=== PATIENT | male | born 1995 | race Hispanic/Latino ===

== ENCOUNTER 2021-10-21 15:26 | Emergency (ER) | payer OTHER ==
[~2021-10-21] VITALS: Ht 170.2 cm; Wt 66.2 kg
[2021-10-21 15:27] VITALS: BP 110/69
[2021-10-21] MEDS ORDERED: ACET-2079 PO (15:53)
[2021-10-21] MEDS ORDERED: NAPR500T6 PO (15:53)
[2021-10-21] MEDS ORDERED: AMOX1TAB16 PO (15:53)
[2021-10-21] MEDS ORDERED: KETOROLAC 30MG VIAL (30MG/ML) IM ONE (16:00)
== END 2021-10-21 16:23 | disposition home or self-care (01) ==
LOC: EDH 15:26
DX: K04.6 Periapical abscess with sinus (principal)
CPT/HCPCS: 99283; 96372; J1885

== ENCOUNTER 2024-05-31 08:07 | Emergency (ER) | payer SELFPAY ==
[~2024-05-31] VITALS: Ht 170.2 cm; Wt 80.5 kg
[~2024-05-31 08:07] MED LIST: ACET-2079 PO; AMOX1TAB16 PO; NAPR-1506 PO
--- NOTE | 2024-05-31 08:13 | ERN ---
General Chief Complaint: Abdominal Pain Stated Complaint: ABDOMINAL PAIN Time Seen by MD: 08:09 Source: patient History of Present Illness Initial Comments Patient is a 29-year-old male coming in to be evaluated for abdominal pain. Long with the abdominal pain patient states he has been having nauseousness and vomiting. He states the symptoms began four days ago he states he has been using THC. Allergies: Coded Allergies: No Known Drug Allergies (Verified Allergy, 02/25/12) Home Meds Active Scripts Naproxen (Naproxen) 500 Mg Tablet.dr, 500 MG PO BIDPC, #15 TAB Prov:[facility] 10/21/21 Acetaminophen with Codeine (Acetaminophen-Cod #3 Tablet) 1 Each Tablet, 1 TAB PO Q4H PRN for PAIN LEVEL 7 TO 10, #15 TAB Prov:FITTING,[facility]ATEY [facility] 10/21/21 Amoxicillin/Potassium Clav (Amox Tr-K Clv 875-125 mg Tab) 1 Each Tablet, 1 EACH PO BID, #14 TAB Prov:[facility]ING[facility]IMAKIKI [facility] 10/21/21 Past Medical History Past Medical History: No Pertinent History Past Surgical History: None ROS Dictation CONSTITUTIONAL: No chills, no fever, no weakness, no diaphoresis, no malaise. HEAD/FACE: No signs of trauma. EENT: No eye pain, no blurred vision, no tearing, no double vision, no ear pain, no ear discharge, no nose pain, no nasal congestion, no throat pain, no throat swelling, no mouth pain. RESPIRATORY: No cough, no orthopnea, no SOB, no stridor, no wheezing. CARDIOVASCULAR: No chest pain, no edema, no palpitations, no syncope. GASTROINTESTINAL/ABDOMINAL: No abdominal pain, no constipation, no diarrhea, no nausea, no vomiting. GENITOURINARY: No abnormal discharge, no dysuria, no frequent urination, no hematuria. No complaints of pain in the genitals. MUSCULOSKELETAL: No back pain, no gout, no joint pain, no joint swelling, no muscle pain, no muscle stiffness, no neck pain. INTEGUMENTARY: No change in color, no change in hair/nails, no dryness, no lesion, no lumps, no rash. NEUROLOGICAL/PSYCH: No anxiety, not depressed, no emotional problem, no headache, no numbness, no pre-existing deficit, no history of seizures, no tremors, no weakness. HEMATOLOGIC/LYMPHATIC: Not anemic, no history of blood clots, no apparent bleeding, no bruising, glands not swollen. All Systems Negative, Except as Noted. Physical Exam Physical Exam Dictation VITAL SIGNS: Reviewed. GENERAL APPEARANCE: Alert, oriented x3, no acute distress, obese. HEAD AND FACE: Non-traumatic. EYES: PERRL, pink conjunctivas, eyelid no trauma, anterior chamber clear. EARS: Pinnas intact and no signs of trauma or erythema. Ear canals clear and no discharge. TMs no erythema. NOSE: No discharge, no bleeding. OROPHARYNX: Mouth normal, teeth no caries, tongue pink. Pharynx clear, no erythema. Tonsils no exudates, no abscesses noted. Mucous membrane moist. NECK: Supple, non-tender, no thyromegaly, no masses, no JVD, no bruits. BREAST: Deferred. CHEST: No tenderness, no crepitus, no paradoxical movement, no retractions. LUNGS: Clear, well-ventilated, symmetric, no rales, no wheezing, no rhonchi, no stridor, good breath sounds bilaterally. HEART: Regular rate, regular rhythm, no murmur, no gallops. VASCULAR: No peripheral edema. ABDOMEN: Soft, positive bowel sounds, nondistended, no guarding, nontender, no rebound, no masses no hepatomegaly, no splenomegaly, no Brantley's sign, no hernias. RECTAL: Deferred. GENITAL: Deferred. NEUROLOGICAL: Normal speech, gross motor function intact, gross sensory function intact. MUSCULOSKELETAL: Neck nontender, full range of motion, back nontender, full range of motion. EXTREMITIES: Nontender, full range of motion. SKIN: Color pink, dry, no turgor, no rash, no lacerations, no abrasions, no contusions. LYMPHATICS: Deferred. Results Laboratory and Microbiology Lab and Micro Result Laboratory Tests Test 05/31/24 08:41 05/31/24 10:03 05/31/24 11:27 White Blood Count 13.5 K/uL (4.8-10.8) H Red Blood Count 5.71 MIL/uL (4.50-6.20) Hemoglobin 16.9 g/dL (14.0-18.0) Hematocrit 47.9 % (42-54) Mean Corpuscular Volume 83.9 fL (79-99) Mean Corpuscular Hemoglobin 29.6 pg (27.0-33.0) Mean Corpuscular Hemoglobin Concent 35.3 g/dL (32.0-36.0) Red Cell Distribution Width 12.4 % (11.0-15.5) Platelet Count 230 K/uL (130-400) Mean Platelet Volume 10.4 fL (7.5-10.5) Immature Granulocyte % (Auto) 0.4 % (0-1) Neutrophils (%) (Auto) 78.5 % (40.0-77.0) H Lymphocytes (%) (Auto) 13.1 % (21.0-51.0) L Monocytes (%) (Auto) 7.8 % (3.0-13.0) Eosinophils (%) (Auto) 0.1 % (0.0-8.0) Basophils (%) (Auto) 0.1 % (0.0-5.0) Neutrophils # (Auto) 10.6 K/uL (1.8-7.7) H Lymphocytes # (Auto) 1.8 K/uL (1.0-4.8) Monocytes # (Auto) 1.1 K/uL (0.1-1.0) H Eosinophils # (Auto) 0.02 K/uL (0.00-0.70) Basophils # (Auto) 0.02 K/uL (0.00-0.20) Absolute Immature Granulocyte (auto 0.06 K/uL (0-1) Nucleated Red Blood Cells 0.0 % (0.0-0.19) Sodium Level 140 mmol/L (136-145) 141 mmol/L (136-145) Potassium Level 3.1 mmol/L (3.5-5.1) L 3.1 mmol/L (3.5-5.1) L Chloride Level 92 mmol/L (101-111) L 97 mmol/L (101-111) L Carbon Dioxide Level 31 mmol/L (21-32) 29 mmol/L (21-32) Blood Urea Nitrogen 23 mg/dL (7-18) H 20 mg/dL (7-18) H Creatinine 1.7 mg/dL (0.5-1.3) H 1.4 mg/dL (0.5-1.3) H Glomerular Filtration Rate Calc 55 mL/min (>90) 69 mL/min (>90) Random Glucose 117 mg/dL (70-105) H 114 mg/dL (70-105) H Total Calcium 10.2 mg/dL (8.5-10.1) H 9.3 mg/dL (8.5-10.1) Magnesium Level 2.00 mg/dL (1.80-2.40) Total Bilirubin 1.2 mg/dL (0.2-1.0) H Aspartate Amino Transf (AST/SGOT) 40 U/L (10-37) H Alanine Aminotransferase (ALT/SGPT) 52 U/L (12-78) Alkaline Phosphatase 82 U/L (50-136) Total Creatine Kinase 941 U/L (21-232) *H 786 U/L (21-232) *H Troponin I High Sensitivity 15 ng/L (4-75) Total Protein 7.6 g/dL (6.0-8.3) Albumin 4.5 g/dL (3.5-5.0) Lipase 23 U/L (16-77) Urine Color YELLOW (YELLOW) Urine Appearance CLEAR (CLEAR) Urine pH 6.0 (5.0-8.0) Urine Specific [place] 1.036 (1.001-1.031) Urine Protein 100 mg/dL (NEGATIVE) H Urine Glucose (UA) NEGATIVE mg/dL (NEGATIVE) Urine Ketones 150 mg/dL (NEGATIVE) H Urine Occult Blood NEGATIVE (NEGATIVE) Urine Nitrate NEGATIVE (NEGATIVE) Urine Bilirubin 0.5 mg/dL (NEGATIVE) H Urine Urobilinogen 3 mg/dL (0.2-1.0) H Urine Leukocyte Esterase NEGATIVE Mildred/uL Urine RBC 2-5 /HPF (0-1) H Urine WBC 2-5 /HPF (0-1) H Urine Squamous Epithelial Cells RARE /HPF (0-2) Urine Bacteria RARE /HPF (None Seen) Urine Hyaline Casts >100 /LPF (0-1 /LPF) H Urine Other Casts 1 /LPF (None Seen) Urine Opiates Screen NEGATIVE (NEGATIVE) Urine Barbiturates Screen NEGATIVE (NEGATIVE) Urine Phencyclidine Screen NEGATIVE (NEGATIVE) Urine Amphetamines Screen NEGATIVE (NEGATIVE) Urine Benzodiazepines Screen POSITIVE (NEGATIVE) H Urine Cocaine Screen POSITIVE (NEGATIVE) H Urine Marijuana (THC) Screen POSITIVE (NEGATIVE) H Labs Reviewed?: Yes MDM MDM: Differential diagnosis: Polysubstance abuse, nauseousness and vomiting, hypokalemia, elevated CK Rationale: Tests considered and ordered secondary to shared decision making include: Patient is a 29-year-old male coming in to be evaluated for nauseousness and vomiting. Laboratory workup positive for polysubstance abuse. I did advised him abstaining from polysubstance as this would make him vomit more. He does have a history of gastritis. Patient received IV fluids and he emetics and Haldol states he feels better. He states he wants to leave. I advised him oral hydration and I will be providing antiemetics for ongoing treatment. ED Course Orders Procedure Category Date Status Time Cbc With Differential LAB 05/31/24 Complete 08:11 Comprehensive LAB 05/31/24 Complete Metabolic Panel 08:11 Troponin I High LAB 05/31/24 Complete Sensitivity 08:11 Urinalysis Profile LAB 05/31/24 Complete 08:11 12 Lead Ekg Tracing- EKG 05/31/24 Logged Technical 08:11 Lactated Ringers PHA 05/31/24 Complete 1000ml (Lactated 08:30 Ondansetron 4mg Inj PHA 05/31/24 Complete (Zofran 4mg Inj) 08:30 Pantoprazole 40mg Inj PHA 05/31/24 Complete (Protonix 40mg Inj 08:30 Creatine Kinase, Total LAB 05/31/24 Complete 08:11 Lipase LAB 05/31/24 Complete 08:11 Drug Screen Urine LAB 05/31/24 Complete 08:19 Magnesium LAB 05/31/24 Complete 09:18 Potassium Bicarb/Cit PHA 05/31/24 Complete Ac 25meq (K-Lyte Ta 09:30 0.9%Nacl 1000ml (Ns PHA 05/31/24 Complete 1000ml) 09:30 Basic Metabolic Panel LAB 05/31/24 Complete 11:15 Creatine Kinase, Total LAB 05/31/24 Complete 11:15 Haloperidol Inj PHA 05/31/24 Complete (Haldol Inj) 11:19 Current Medications Medications (Trade) Dose Ordered Sig/[place] Route PRN Reason Start Time Stop Time Status Last Admin Dose Admin Haloperidol Lactate (Haldol Inj) 2.5 mg ONCE STAT IV 05/31/24 11:19 05/31/24 11:20 DC 05/31/24 11:39 Lactated Ringer's 1,000 ml @ 0 mls/hr ONCE ONCE IV 05/31/24 08:30 05/31/24 08:31 DC 05/31/24 09:04 Ondansetron HCl (zoFRAN 4MG INJ) 4 mg ONCE ONCE IVP 05/31/24 08:30 05/31/24 08:31 DC 05/31/24 09:04 Pantoprazole Sodium (PROTonix 40MG INJ) 40 mg ONCE ONCE IVP 05/31/24 08:30 05/31/24 08:31 DC 05/31/24 09:04 Potassium Bicarbonate (K-Lyte Tablet Eff 25 Meq Tablet.eff) 50 meq ONCE ONCE PO 05/31/24 09:30 05/31/24 09:31 DC 05/31/24 10:01 Sodium Chloride 1,000 ml @ 0 mls/hr ONCE ONCE IV 05/31/24 09:30 05/31/24 09:31 DC 05/31/24 10:01 Vital Signs Date Time Temp Pulse Resp B/P (MAP) Pulse Ox O2 Delivery O2 Flow Rate FiO2 05/31/24 10:06 97.9 83 20 124/73 97 Room Air* 0 21 05/31/24 08:08 98.8 65 16 137/74 99 Room Air* 0 21 05/31/24 08:08 98.8 65 20 137/74 99 Room Air 0 DX & DISP Disposition: Discharge Departure Impression: Primary Impression: Polysubstance abuse Additional Impressions: Elevated CK, Hypokalemia, Vomiting Condition: Stable Scripts Ondansetron (Ondansetron Odt) 4 Mg Tab.rapdis 4 MG PO BID PRN for NAUSEA/VOMITING, #6 TAB Prov: ANTHONY MELÉNDEZ MD 05/31/24 Potassium Chloride (K-Dur/Klor-Con) 10 Meq Ertab 1 TAB PO DAILY for 7 Days, #7 TAB 0 Refills Prov: ANTHONY MELÉNDEZ MD 05/31/24 Additional Instructions: FOLLOW-UP WITH PRIMARY CARE PROVIDER IN 1 TO 2 DAYS. TAKE MEDICATIONS DIRECTED HERE IN THE EMERGENCY ROOM. OKAY TO CONTINUE HOME MEDICATIONS UNLESS OTHERWISE DISCUSSED DURING YOUR VISIT IN THE EMERGENCY ROOM TODAY. RETURN TO YOUR NEAREST EMERGENCY ROOM IF SYMPTOMS WORSEN OR IF THERE IS NO IMPROVEMENT. CALL 911 IF YOU NEED IMMEDIATE ASSISTANCE. TAKE TYLENOL [id number] NEEDED AND IF NO CONTRAINDICATIONS ARE PRESENT. INCREASE ORAL HYDRATION. A WOUND CULTURE OR URINE CULTURE WAS ORDERED HERE IN THE EMERGENCY ROOM DEPARTMENT PLEASE FOLLOW-UP WITH PRIMARY CARE PROVIDER AND ADVISE THEM TO GET REPEAT PORTS FROM OUR FACILITY. IF YOU HAD ANY MANUELITO WRAP/SPLINTS THAT WERE APPLIED HERE, PLEASE DO NOT REMOVE THEM UNTIL YOU SEE YOUR PRIMARY CARE OR SPECIALTY. Referrals: Referrals: NONE (PCP) JANNA HOYT MD Time of Disposition: 12:15 ANTHONY MELÉNDEZ MD May 31, 2024 08:13
[2024-05-31 08:48] LABS: BASOPHILS # (AUTO) 0.02 K/uL (0.00-0.20); BASOPHILS % (AUTO) 0.1 % (0.0-5.0); EOSINOPHILS # (AUTO) 0.02 K/uL (0.00-0.70); EOSINOPHILS % (AUTO) 0.1 % (0.0-8.0); HEMATOCRIT 47.9 % (42-54); IMMATURE GRANULOCYTE ABSOLUTE 0.06 K/uL (0-1); LYMPHOCYTES # (AUTO) 1.8 K/uL (1.0-4.8); LYMPHOCYTES % (AUTO) 13.1 % (21.0-51.0); MEAN CORPUSCULAR HEMOGLOBIN 29.6 pg (27.0-33.0); MEAN CORPUSCULAR HGB CONC 35.3 g/dL (32.0-36.0); MEAN CORPUSCULAR VOLUME 83.9 fL (79-99); MONOCYTES # (AUTO) 1.1 K/uL (0.1-1.0); MONOCYTES % (AUTO) 7.8 % (3.0-13.0); NEUTROPHILS # (AUTO) 10.6 K/uL (1.8-7.7); NEUTROPHILS % (AUTO) 78.5 % (40.0-77.0); PLATELET COUNT (AUTO) 230 K/uL (130-400); RED BLOOD CELL COUNT(AUTO) 5.71 MIL/uL (4.50-6.20); RED CELL DISTRIBUTION WIDTH 12.4 % (11.0-15.5); WHITE BLOOD COUNT (AUTO) 13.5 K/uL (4.8-10.8)
[2024-05-31] MEDS: ondanSETRON 4MG INJ IVP ONE (09:04)
[2024-05-31] MEDS: PANTOPrazole 40 MG/VIAL IVP ONE (09:04)
[2024-05-31] MEDS: LACTATED RINGERS 1000ML 1,000 ML IV ONE (09:04)
[2024-05-31 09:10] LABS: ALBUMIN 4.5 g/dL (3.5-5.0); BILIRUBIN,TOTAL 1.2 mg/dL (0.2-1.0); CREATININE 1.7 mg/dL (0.5-1.3); POTASSIUM 3.1 mmol/L (3.5-5.1); TOTAL PROTEIN, SERUM 7.6 g/dL (6.0-8.3)
[2024-05-31] MEDS: 0.9%NACL 1000ML 1,000 ML IV ONE (10:01)
[2024-05-31] MEDS: PoTASSium BIcarbonate/CIT AC 25 MEQ TABLET.EFF PO ONE (10:01)
[2024-05-31 10:12] LABS: APPEARANCE,URINE CLEAR (CLEAR); BILIRUBIN,URINE 0.5 mg/dL (NEGATIVE); COLOR,URINE YELLOW (YELLOW); GLUCOSE, URINE (UA) NEGATIVE (NEGATIVE); KETONES,URINE 150 mg/dL (NEGATIVE); LEUKOCYTE ESTERASE ,URINE NEGATIVE Leu/uL (NEGATIVE); NITRATE,URINE NEGATIVE (NEGATIVE); OCCULT BLOOD,URINE NEGATIVE (NEGATIVE); PROTEIN,URINE 100 mg/dL (NEGATIVE); UROBILINOGEN,URINE 3 mg/dL (0.2-1.0)
[2024-05-31 10:18] LABS: ADD UA MICROSCOPIC YES
[2024-05-31 10:19] LABS: AMPHET/METH SCREEN,URINE NEGATIVE (NEGATIVE); BARBITURATE SCREEN, URINE NEGATIVE (NEGATIVE); BENZODIAZEPINES SCREEN,URINE POSITIVE (NEGATIVE); CANNABINOID SCREEN,URINE POSITIVE (NEGATIVE); COCAINE SCREEN,URINE POSITIVE (NEGATIVE); OPIATE SCREEN,URINE NEGATIVE (NEGATIVE); PHENCYCLIDINE SCREEN,URINE NEGATIVE (NEGATIVE)
[2024-05-31 10:48] LABS: BACTERIA,URINE RARE /HPF (None Seen); HYALINE CASTS, URINE >100 /LPF (0-1 /LPF); MUCUS,URINE MANY LPF (None Seen); OTHER CASTS, URINE 1 /LPF (None Seen); SQUAMOUS EPITHELIAL CELL,UR RARE /HPF (0-2)
[2024-05-31] MEDS: HALOPERIDOL INJ 5 MG/ML VIAL IV STA (11:39)
[2024-05-31 11:56] LABS: CREATININE 1.4 mg/dL (0.5-1.3); POTASSIUM 3.1 mmol/L (3.5-5.1)
[2024-05-31] MEDS ORDERED: ONDA-243 PO (12:16)
[2024-05-31] MEDS ORDERED: POTA-187 PO (12:16)
[2024-05-31 12:39] VITALS: BP 136/68; PULSE 78; RESP 18; TEMP 98.9; O2SAT 97
--- NOTE | 2024-05-31 12:45 | NUR ---
PT STABLE AAOX4, VITALS WNL. NO C/O PAIN, TWO RX GIVEN IN HAND WILL DROP OFF TO PHARMACY AND START TODAY, IV REMOVED CATHETER INTACT, PT WALKED OUT TO ER LOBBY SISTER DROVE HIM HOME.
--- NOTE | 2024-05-31 15:20 | EKG ---
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
== END 2024-05-31 12:45 | disposition home or self-care (01) ==
LOC: EDH 08:07
DX: E87.6 Hypokalemia (principal); F19.10 Other psychoactive substance abuse, uncomplicated; R74.8 Abnormal levels of other serum enzymes; R11.2 Nausea with vomiting, unspecified; Z79.899 Other long term (current) drug therapy
CPT/HCPCS: 99284; 96374; 96361; 96375; 82550 ×2; 83735; 84484; 80053; 80305; 83690; 85025; 36415; 93005; 81001; 80048; J7120; J7030; J1630; J2405; J2470